=== PATIENT | male | born 1980 | race Caucasian/White ===

== ENCOUNTER 2017-09-14 21:40 | Emergency (ER) | payer SELFPAY ==
[~2017-09-14] VITALS: Ht 188 cm; Wt 123.9 kg
[~2017-09-14 21:40] MED LIST: MOTRIN400 MG PO
[2017-09-14 21:42] VITALS: BP 163/102
== END 2017-09-14 23:20 | disposition left against medical advice (07) ==
LOC: EME 21:40
DX: F11.10 Opioid abuse, uncomplicated (principal); R19.7 Diarrhea, unspecified; Z53.20 Procedure and treatment not carried out because of patient's decision for unspecified reasons; F17.200 Nicotine dependence, unspecified, uncomplicated
CPT/HCPCS: 99281; 99283